=== PATIENT | male | born 1955 | race Caucasian/White ===

== ENCOUNTER 2023-12-30 22:43 | Inpatient (IN) | payer MEDICARE, MEDICAID ==
[~2023-12-30] VITALS: Ht 187.9 cm; Wt 88.7 kg
[2023-12-30] MEDS ORDERED: SINEMET 25-1001 EACH PO (23:28)
[2023-12-30] MEDS ORDERED: PROSCAR5 M1 PO (23:29)
[2023-12-30] MEDS ORDERED: AMOX-CLAV 875-1 EACH PO (23:30)
[2023-12-30] MEDS ORDERED: MIDODRINE HCL5 M1 PO (23:31)
[2023-12-30] MEDS ORDERED: RISPERDAL1 M1 PO (23:32)
[2023-12-30] MEDS ORDERED: FLOMAX0.4 MG PO (23:33)
[2023-12-30] MEDS ORDERED: LIPITOR40 MG PO (23:34)
[2023-12-30] MEDS ORDERED: CO-ENZYME Q101 EACH PO (23:35)
[2023-12-30] MEDS ORDERED: MULTIVITAMINS1 EAC6 PO (23:36)
[2023-12-30] MEDS ORDERED: MEMANTINE HCL10 MG PO (23:36)
[2023-12-30] MEDS ORDERED: PROTONIX20 MG PO (23:38)
[2023-12-30] MEDS ORDERED: MIRALAX119 GM PO (23:40)
[2023-12-30] MEDS ORDERED: B-1100 M1 PO (23:44)
[2023-12-30] MEDS ORDERED: DEPAKENE S250 MG/5 M PO (23:45)
[2023-12-30] MEDS ORDERED: HALOPERIDOL5 MG/1 M2 IM (23:51)
[2023-12-30] MEDS ORDERED: CILOXAN3.5 GM OP (23:54)
[2023-12-30] MEDS ORDERED: BUSPAR5 MG PO (23:55)
[2023-12-30] MEDS ORDERED: LOVAZA1 GM PO (23:58)
[2023-12-31] MEDS ORDERED: ACETAMINOPHEN 325 MG TAB PO PRN (00:40)
[2023-12-31] MEDS ORDERED: Magnesium Hydroxide 30 ML UDC PO PRN (00:40)
[2023-12-31] MEDS ORDERED: MG-AL HYDROXIDE/SIMETICONE 30 ML UDC PO PRN (00:40)
[2023-12-31] MEDS ORDERED: Menthol/Zinc Oxide 4 GM THIN T PRN (00:50)
[2023-12-31 00:56] VITALS: BP 111/59
[2023-12-31] MEDS ORDERED: VALPROIC ACID 250 MG/5 ML UDC PO SCH (06:00)
[2023-12-31 07:14] LABS: BASO # 0.1 10*3/uL (0.0-0.1); BASO % 1.1 % (0.0-1.0); EOS # 0.1 10*3/uL (0.0-0.4); EOS % 1.8 % (1.0-4.0); HEMATOCRIT 39.2 % (42.0-52.0); LYMPH # 1.3 10*3/uL (1.3-4.4); LYMPH % 17.6 % (27.0-41.0); MEAN CELL VOLUME 92.7 fl (80.0-94.0); MEAN CORPUSCULAR HGB 30.7 pg (27.0-31.0); MEAN CORPUSCULAR HGB CONC 33.2 g/dl (33.0-37.0); MEAN PLATELET VOLUME 9.3 fl (9.6-12.3); MONO # 0.6 10*3/uL (0.1-1.0); MONO % 7.9 % (3.0-9.0); NEUT # 5.2 10*3/uL (2.3-7.9); NEUT % 70.6 % (47.0-73.0); PLATELET COUNT AUTOMATED 397 10*3/uL (130-400); RED BLOOD COUNT 4.23 10*6/uL (4.50-5.90); RED CELL DISTRI WIDTH 15.1 % (0-14.5); WHITE BLOOD COUNT 7.3 10*3/uL (4.8-10.8)
[2023-12-31 07:39] LABS: ALKALINE PHOSPHATASE 69 U/L (46-116); BUN 21 mg/dl (9-23); CHLORIDE 100 mmol/L (98-107); CHOLESTEROL 136 mg/dL (<200); LDL CHOLESTEROL 57 mg/dL (9-159); POTASSIUM 4.1 mmol/L (3.4-5.1); SGPT/ALT 58 U/L (5-49); TOTAL PROTEIN 7.5 gm/dL (6.0-8.0); TRIGLYCERIDES 281 mg/dl (<150); VALPROIC ACID (DEPAKENE) 21.8 ug/ml (50-100)
[2023-12-31 07:54] VITALS: BP 107/60
[2023-12-31 08:52] LABS: VITAMIN D, 25-HYDROXY 38.7 ng/mL (30-100)
[2023-12-31] MEDS ORDERED: ILOPERIDONE PO SCH (09:00)
[2023-12-31] MEDS ORDERED: Rivastigmine Tartrate 4.6 MG/24 HR PATCH T SCH (09:00)
[2023-12-31] MEDS ORDERED: Memantine Hydrochloride 10 MG TAB PO SCH (09:00)
[2023-12-31] MEDS ORDERED: Carbidopa/Levodopa 25/100MG 1 TAB TAB PO SCH (13:00)
[2023-12-31] MEDS ORDERED: Menthol/Zinc Oxide 4 GM THIN T SCH (18:25)
[2023-12-31 20:00] VITALS: BP 117/66
[2023-12-31] MEDS ORDERED: Midodrine Hydrochloride 5 MG TAB PO SCH (21:00)
[2024-01-01 07:52] VITALS: BP 100/54
[2024-01-01] MEDS ORDERED: Fish Oil 500 MG CAP PO SCH (09:00)
[2024-01-01] MEDS ORDERED: Tamsulosin Hydrochloride 0.4 MG CAP PO SCH (09:00)
[2024-01-01] MEDS ORDERED: Pantoprazole Sodium 20 MG TAB PO SCH (09:00)
[2024-01-01] MEDS ORDERED: ATORVASTATIN CALCIUM 40 MG TABLET PO SCH (09:00)
[2024-01-01] MEDS ORDERED: FINASTERIDE 5 MG TAB PO SCH (09:00)
[2024-01-01] MEDS ORDERED: Thiamine 100 MG TAB PO SCH (09:00)
[2024-01-01] MEDS ORDERED: BARIUM SULFATE 98% 340 GM BOT DIAG SCH (14:55)
[2024-01-01] MEDS ORDERED: BARIUM SULFATE 60% 355 ML BOT DIAG SCH (14:55)
[2024-01-01 19:13] VITALS: BP 106/62
[2024-01-01] MEDS ORDERED: LORazepam 1 MG TAB PO PRN (21:45)
[2024-01-02] MEDS ORDERED: HEEL PROTECTOR DEVICE ONE (03:27)
[2024-01-02 07:38] VITALS: BP 111/59
[2024-01-02] MEDS ORDERED: Rivastigmine Tartrate 9.5 MG/24 HR PATCH T SCH (09:00)
[2024-01-02] MEDS ORDERED: Cholecalciferol 2,000 UNIT TABLET (50 MCG) PO SCH (09:00)
[2024-01-02] MEDS ORDERED: BARIUM SULFATE 96% 176 GM BOT PO ONE (09:35)
[2024-01-02] MEDS ORDERED: BARIUM SULFATE 98% 340 GM BOT PO ONE (10:00)
[2024-01-02 19:21] VITALS: BP 120/92
[2024-01-02] MEDS ORDERED: BREXPIPRAZOLE 1 MG TABLET PO SCH (21:00)
[2024-01-03 07:47] VITALS: BP 111/57
[2024-01-03] MEDS ORDERED: RIVASTIGMINE 13.3 MG/24 HR TDM T SCH (09:00)
[2024-01-03 20:00] VITALS: BP 98/60
[2024-01-04 07:47] VITALS: BP 102/65
[2024-01-04] MEDS ORDERED: FOAM BANDAGE 4X4 T ONE (10:48)
[2024-01-04 20:00] VITALS: BP 126/61
[2024-01-04] MEDS ORDERED: BREXPIPRAZOLE 2 MG TABLET PO SCH (21:00)
[2024-01-05 08:00] VITALS: BP 100/68
[2024-01-05 20:00] VITALS: BP 128/64
[2024-01-06 08:00] VITALS: BP 98/60
[2024-01-06 20:00] VITALS: BP 107/56
[2024-01-07 08:00] VITALS: BP 93/55
[2024-01-07 09:27] LABS: BASO # 0.1 10*3/uL (0.0-0.1); BASO % 1.2 % (0.0-1.0); EOS # 0.2 10*3/uL (0.0-0.4); EOS % 3.9 % (1.0-4.0); HEMATOCRIT 35.1 % (42.0-52.0); LYMPH # 1.1 10*3/uL (1.3-4.4); LYMPH % 18.5 % (27.0-41.0); MEAN CELL VOLUME 94.4 fl (80.0-94.0); MEAN CORPUSCULAR HGB 30.1 pg (27.0-31.0); MEAN CORPUSCULAR HGB CONC 31.9 g/dl (33.0-37.0); MEAN PLATELET VOLUME 9.4 fl (9.6-12.3); MONO # 0.5 10*3/uL (0.1-1.0); MONO % 8.3 % (3.0-9.0); NEUT % 67.9 % (47.0-73.0); PLATELET COUNT AUTOMATED 307 10*3/uL (130-400); RED BLOOD COUNT 3.72 10*6/uL (4.50-5.90); RED CELL DISTRI WIDTH 14.6 % (0-14.5); WHITE BLOOD COUNT 5.9 10*3/uL (4.8-10.8)
[2024-01-07 09:55] VITALS: BP 108/60
[2024-01-07 10:02] LABS: ALKALINE PHOSPHATASE 57 U/L (46-116); BUN 16 mg/dl (9-23); CHLORIDE 103 mmol/L (98-107); POTASSIUM 3.6 mmol/L (3.4-5.1); TOTAL PROTEIN 6.2 gm/dL (6.0-8.0); VALPROIC ACID (DEPAKENE) 56.8 ug/ml (50-100)
[2024-01-07 10:31] LABS: SGPT/ALT < 7 U/L (5-49)
[2024-01-07 20:00] VITALS: BP 103/56
[2024-01-08 08:00] VITALS: BP 100/63
[2024-01-08 20:00] VITALS: BP 98/56
[2024-01-09 07:49] VITALS: BP 88/60
[2024-01-09 11:13] VITALS: BP 120/70
[2024-01-09 20:00] VITALS: BP 127/60
[2024-01-09] MEDS ORDERED: LORazepam 1 MG TAB PO PRN (23:55)
[2024-01-10 08:00] VITALS: BP 98/65
[2024-01-10] MEDS ORDERED: Midodrine Hydrochloride 5 MG TAB PO SCH (13:00)
[2024-01-10 20:00] VITALS: BP 154/68
[2024-01-11 05:40] VITALS: BP 104/68
[2024-01-11 20:00] VITALS: BP 105/60
[2024-01-12 08:00] VITALS: BP 124/70
[2024-01-12] MEDS ORDERED: hydrOXYzine pamoate 25 MG CAP PO SCH (13:00)
[2024-01-12] MEDS ORDERED: Ziprasidone Mesylate 20 MG VIAL IM ONE (19:05)
[2024-01-12 20:00] VITALS: BP 127/49
[2024-01-12] MEDS ORDERED: RAMELTEON 8 MG TAB PO SCH (21:00)
[2024-01-13 08:00] VITALS: BP 122/59
[2024-01-13 20:00] VITALS: BP 116/54
[2024-01-13] MEDS ORDERED: Water, Sterile 10 ML VIAL IM ONE (21:00)
[2024-01-13] MEDS ORDERED: Ziprasidone Mesylate 20 MG VIAL IM ONE (21:00)
[2024-01-14 07:52] VITALS: BP 82/57
[2024-01-14] MEDS ORDERED: Ziprasidone Mesylate 20 MG VIAL IM PRN (09:45)
[2024-01-14] MEDS ORDERED: SODIUM CHLORIDE 0.9% 500 ML IV ONE (10:07)
[2024-01-14] MEDS ORDERED: Water, Sterile 10 ML VIAL IM PRN (10:10)
[2024-01-14] MEDS ORDERED: hydrOXYzine 50 MG CAP PO SCH (13:00)
[2024-01-14 14:50] VITALS: BP 117/62
[2024-01-14] MEDS ORDERED: BREXPIPRAZOLE 2 MG TABLET PO SCH (17:00)
[2024-01-15 08:00] VITALS: BP 123/70
[2024-01-15 20:00] VITALS: BP 98/57
[2024-01-15 21:08] LABS: BILIRUBIN Negative (Negative); BLOOD Negative (Negative); CLARITY Turbid (Clear); COLOR Yellow (Yellow); GLUCOSE Negative (Negative); KETONE Trace (Negative); LEUKO ESTERASE 3+ (Negative); NITRITE Positive (Negative); SPECIFIC GRAVITY 1.025 (1.001-1.030)
[2024-01-15 21:19] LABS: WBC TNTC wbc/hpf (0-5)
[2024-01-15 21:20] LABS: BACTERIA 4+
[2024-01-15] MEDS ORDERED: Fosfomycin Tromethamine 3 GM PDS PO SCH (21:30)
[2024-01-16 07:57] VITALS: BP 94/61
[2024-01-16] MEDS ORDERED: MEMANTINE HCL10 MG PO (09:16)
[2024-01-16] MEDS ORDERED: RAMELTEON8 MG PO (09:16)
[2024-01-16] MEDS ORDERED: RIVASTIGMINE1 EAC2 T (09:16)
[2024-01-16] MEDS ORDERED: REXULTI2 MG PO (09:16)
[2024-01-16] MEDS ORDERED: DEPAKENE S250 MG/5 M PO (09:16)
[2024-01-16] MEDS ORDERED: OMNICEF300 MG PO (09:54)
== END 2024-01-16 11:57 | DRG 883 ==
LOC: 3N 22:43
PROVIDERS: Nurse Practitioner; Registered Nurse; ADMIT Psychiatry & Neurology Psychiatry; ATTEND Psychiatry & Neurology Psychiatry
PROC: GZHZZZZ Group Psychotherapy (ICD-10-PCS; principal; 2023-12-31)
PROC: GZ51ZZZ Individual Psychotherapy, Behavioral (ICD-10-PCS; 2023-12-31)
PROC: 0HBRXZZ Excision of Toe Nail, External Approach (ICD-10-PCS; 2024-01-02)
PROC: 0HBRXZZ Excision of Toe Nail, External Approach (ICD-10-PCS; 2024-01-02)
PROC: 0HBRXZZ Excision of Toe Nail, External Approach (ICD-10-PCS; 2024-01-02)
PROC: 0HBRXZZ Excision of Toe Nail, External Approach (ICD-10-PCS; 2024-01-02)
PROC: 0HBRXZZ Excision of Toe Nail, External Approach (ICD-10-PCS; 2024-01-02)
PROC: 0HBRXZZ Excision of Toe Nail, External Approach (ICD-10-PCS; 2024-01-02)
PROC: 0HBRXZZ Excision of Toe Nail, External Approach (ICD-10-PCS; 2024-01-02)
PROC: 0HBRXZZ Excision of Toe Nail, External Approach (ICD-10-PCS; 2024-01-02)
PROC: 0HBRXZZ Excision of Toe Nail, External Approach (ICD-10-PCS; 2024-01-02)
PROC: 0HBRXZZ Excision of Toe Nail, External Approach (ICD-10-PCS; 2024-01-02)
PROC: BD1BYZZ Fluoroscopy of Mouth/Oropharynx using Other Contrast (ICD-10-PCS; 2024-01-03)
DX: F63.81 Intermittent explosive disorder (principal); Z93.1 Gastrostomy status; F23 Brief psychotic disorder; F02.818 Dementia in other diseases classified elsewhere, unspecified severity, with other behavioral disturbance; F10.10 Alcohol abuse, uncomplicated; K21.9 Gastro-esophageal reflux disease without esophagitis; G31.83 Neurocognitive disorder with Lewy bodies; N40.1 Benign prostatic hyperplasia with lower urinary tract symptoms; R39.14 Feeling of incomplete bladder emptying; M65.4 Radial styloid tenosynovitis [de Quervain]; N52.9 Male erectile dysfunction, unspecified; G20.A2 Parkinson's disease without dyskinesia, with fluctuations; B35.1 Tinea unguium; K76.0 Fatty (change of) liver, not elsewhere classified; E78.5 Hyperlipidemia, unspecified; M77.12 Lateral epicondylitis, left elbow; G90.8 Other disorders of autonomic nervous system; Z87.891 Personal history of nicotine dependence; Z90.49 Acquired absence of other specified parts of digestive tract; Z88.8 Allergy status to other drugs, medicaments and biological substances; Z79.899 Other long term (current) drug therapy